=== PATIENT | female | born 1950 | race Caucasian/White ===

== ENCOUNTER 2020-04-01 06:00 | Outpatient (CLI) | payer MEDICARE, SELFPAY ==
[2020-04-01 16:38] LABS: SARS-CoV-2 RNA PCR Negative
== END 2020-04-01 06:01 | disposition home or self-care (01) ==
LOC: ANHCOVIDDT 06:01
PROVIDERS: PCP Internal Medicine Infectious Disease; Visit Provider Internal Medicine Gastroenterology
DX: Z01.818 Encounter for other preprocedural examination (principal); Z11.59 Encounter for screening for other viral diseases
CPT/HCPCS: 87635; U0003

== ENCOUNTER 2020-04-03 01:00 | Day surgery (SDC) | payer MEDICARE, SELFPAY ==
[2020-03-30 13:35] VITALS: BMI 29.2
[2020-04-03 06:59] VITALS: BP 115/54; PULSE 67; RESP 16; TEMP 36.3; O2SAT 99
[2020-04-03] MEDS: LACTATED RINGERS 1,000 ML 150 ML IV CONT (07:19)
--- NOTE | 2020-04-03 07:41 | WPDANESEPPF ---
Anes - Initial Pre Proc Eval Procedure: Operation Date: 04/03/20 08:00 Proposed Procedures p Esophagogastroduodenoscopy - Joseluis Hanson MD Date/Time: 04/03/20 07:41 Surgeon: Joseluis Hanson MD Pre Op Diagnosis: GERD Patient Data Age: 69 Gender: F Height: 5 ft 6 in Weight: 79.8 kg Last Vital Signs Temp 36.3 C L 04/03/20 06:59 Pulse 67 04/03/20 06:59 Resp 16 04/03/20 06:59 BP 115/54 L 04/03/20 06:59 Pulse Ox 99 04/03/20 06:59 Allergies Allergy/AdvReac Type Severity Reaction Status Date / Time diazepam Allergy Intermediate Rash Verified 04/03/20 06:56 trimethoprim Allergy Mild Rash Unverified 04/03/20 06:56 TAPE/SURGICAL Allergy Intermediate PT STATES Uncoded 04/03/20 06:56 ITCHING AND RASH WITH SOME SURGICAL TAPES. URINARY ANTI Allergy Unknown Unknown Uncoded 04/03/20 06:56 Home Medications Medication Instructions Recorded Confirmed Type aspirin [Aspir-81] 81 mg PO DAILY 03/30/20 03/30/20 History atorvastatin [Lipitor] 1 mg PO DAILY 03/30/20 03/30/20 History bupropion HCl 300 mg PO DAILY 03/30/20 04/03/20 History clonazepam [Klonopin] 0.5 mg PO DAILY 03/30/20 03/30/20 History ergocalciferol (vitamin D2) 50,000 unit PO 2XW 03/30/20 03/30/20 History levothyroxine [Synthroid] 125 mcg PO DAILY 03/30/20 04/03/20 History naltrexone 50 mg PO DAILY 03/30/20 03/30/20 History omeprazole 20 mg PO DAILY 03/30/20 03/30/20 History oxybutynin chloride 5 mg PO AC 03/30/20 03/30/20 History Patient hx anesthesia problems: none Family hx anesthesia problems: none PMFSH Social History Social History Gender identity (if verbalized by the patient): Female Anes - Eval Final PreProcedure Day of Procedure 04/03/20 07:41 Patient weight: overweight Heart: regular rate and rhythm Lungs: clear to auscultation Airway: Mallampati scale class II Neurological: alert and oriented Last oral intake: >/= 8 hours ASA classification: III Emergent: no Anesthetic plan: proceed Anesthesia type and monitoring: general GIVS and standard monitoring Informed Consent: The patient's anesthetic plan and its attendant risks and benefits were discussed with the patient/family/POA. Questions were solicited and answers provided to the satisfaction of the patient/family/POA.
--- NOTE | 2020-04-03 07:44 | WPDGICN ---
Assessment and Plan Assessment and plan (1) GERD (gastroesophageal reflux disease): Code(s): K21.9 - Gastro-esophageal reflux disease without esophagitis Status: Acute Assessment and Plan: Patient's symptoms seem to suggest acid reflux disease. Currently poor response to medications making possibility of functional dyspepsia a possibility. Plan is for EGD to assess more thoroughly. Further recommendations will be given after endoscopy. Patient is to continue anti-reflux measures including elevating head of bed, bland foods, and proton pump inhibitor until this is accomplished. (2) History of gastric bypass: Code(s): Z98.84 - Bariatric surgery status Status: Acute (3) Heartburn: Code(s): R12 - Heartburn Status: Acute GI Consult Note Consult date/time: 04/03/20 07:44 HPI: Diana Stock is a 69 year old female Seen in evaluation at the request of Adam Lara. patient complains of epigastric substernal burning discomfort. Symptoms appear to occur with nocturnal regurgitation. She has become somewhat hoarse. Symptoms have been present for at least 8 weeks if not longer. She recently was started on Prilosec 20 mg p.o. daily and is taking this since December. She also had a supply of Carafate at home in his supplemented at with this as needed. This is made no difference in her symptoms. After being seen in the office dose of Prilosec was increased to40mg p.o. daily. Patient states this is had no effect on her symptoms. She does occasionally take Tums or an acids and feel that indeed this does help to certain degree. She denies any dysphagia or weight loss. Past medical history is significant for anxiety. She has a history of prior gastric bypass surgery. Review of Systems Review of Systems: All systems reviewed & are unremarkable except as noted in HPI and below PMFSH Social History Social History Gender identity (if verbalized by the patient): Female Meds Home Medications and Allergies Home Medications Medication Instructions Recorded Confirmed Type aspirin [Aspir-81] 81 mg PO DAILY 03/30/20 03/30/20 History atorvastatin [Lipitor] 1 mg PO DAILY 03/30/20 03/30/20 History bupropion HCl 300 mg PO DAILY 03/30/20 04/03/20 History clonazepam [Klonopin] 0.5 mg PO DAILY 03/30/20 03/30/20 History ergocalciferol (vitamin D2) 50,000 unit PO 2XW 03/30/20 03/30/20 History levothyroxine [Synthroid] 125 mcg PO DAILY 03/30/20 04/03/20 History naltrexone 50 mg PO DAILY 03/30/20 03/30/20 History omeprazole 20 mg PO DAILY 03/30/20 03/30/20 History oxybutynin chloride 5 mg PO AC 03/30/20 03/30/20 History Allergies Allergy/AdvReac Type Severity Reaction Status Date / Time diazepam Allergy Intermediate Rash Verified 04/03/20 06:56 trimethoprim Allergy Mild Rash Unverified 04/03/20 06:56 TAPE/SURGICAL Allergy Intermediate PT STATES Uncoded 04/03/20 06:56 ITCHING AND RASH WITH SOME SURGICAL TAPES. URINARY ANTI Allergy Unknown Unknown Uncoded 04/03/20 06:56 Vital Signs Vital Signs - 24 hr 04/03/20 06:59 Temperature 36.3 C L Pulse Rate 67 Respiratory Rate 16 Blood Pressure 115/54 L Pulse Oximetry 99 Exam Narrative: Exam Narrative: Physical exam reveals her to be alert. Vital signs are stable. HEENT exam unremarkable. Lungs are clear to auscultation and percussion. Heart is without murmur or extra sounds. Abdominal exam bowel sounds are present soft nontender with no hepatosplenomegaly. Digital external rectal exam is normal.
[2020-04-03] MEDS: BENZOCAINE (*SP) 60 ML SPRAY CAN (HURRICAINE) 1 SPRAY MUCOUS MEM (07:51)
[2020-04-03 08:00] VITALS: BP 110/59; PULSE 54; RESP 17; O2SAT 99
[2020-04-03 08:10] VITALS: BP 102/51; PULSE 53; RESP 24; O2SAT 99
[2020-04-03 08:20] VITALS: BP 119/61; PULSE 66; RESP 26; O2SAT 100
== END 2020-04-03 08:50 | disposition home or self-care (01) ==
PROVIDERS: PCP Internal Medicine Infectious Disease; Visit Provider Internal Medicine Gastroenterology
PROC: 0DJ08ZZ Inspection of Upper Intestinal Tract, Via Natural or Artificial Opening Endoscopic (ICD-10-PCS; CPT 43235; principal; 2020-04-03 08:00)
DX: K21.9 Gastro-esophageal reflux disease without esophagitis (principal); Z98.84 Bariatric surgery status; Z79.82 Long term (current) use of aspirin
CPT/HCPCS: 43235; 87635; C9803; J2704; J7120; U0003